=== PATIENT | male | born 1960 | race Caucasian/White ===

== ENCOUNTER 2016-10-16 03:59 | Emergency (ER) | payer MEDICARE, MEDICAID ==
[~2016-10-16] VITALS: Ht 182.9 cm; Wt 88.9 kg
[2016-10-16] MEDS ORDERED: HYDR-879 PO (04:33)
[2016-10-16 05:33] VITALS: BP 139/82
== END 2016-10-16 05:37 | disposition home or self-care (01) ==
LOC: ED 05:34
DX: K40.91 Unilateral inguinal hernia, without obstruction or gangrene, recurrent (principal); I87.2 Venous insufficiency (chronic) (peripheral); I10 Essential (primary) hypertension; E11.9 Type 2 diabetes mellitus without complications; F17.210 Nicotine dependence, cigarettes, uncomplicated
CPT/HCPCS: 99283

== ENCOUNTER 2016-10-19 05:07 | Emergency (ER) | payer MEDICARE, MEDICAID ==
[2016-10-19 05:11] VITALS: BP 167/90
== END 2016-10-19 05:35 | disposition home or self-care (01) ==
LOC: ED 05:30
DX: K40.90 Unilateral inguinal hernia, without obstruction or gangrene, not specified as recurrent (principal)
CPT/HCPCS: 99281

== ENCOUNTER → 2016-10-19 | Emergency (ER) | payer MEDICARE, MEDICAID ==
[~2016-10-19] VITALS: Ht 188 cm; Wt 88.0 kg
[~2016-10-19] MED LIST: HYDR-879 PO
[2016-10-19 01:58] LABS: BLOOD UREA NITROGEN 18 mg/dL (7-18)
[2016-10-19 02:57] VITALS: BP 159/97
== END ==
LOC: ED 02:30
DX: R60.0 Localized edema (principal); L03.116 Cellulitis of left lower limb; L03.115 Cellulitis of right lower limb; I10 Essential (primary) hypertension; E11.9 Type 2 diabetes mellitus without complications; Z88.5 Allergy status to narcotic agent
CPT/HCPCS: 36415; 71010; 80048; 82040; 85025; 93005; 93970; 99285

== ENCOUNTER 2016-11-01 00:05 | Emergency (ER) | payer MEDICARE, MEDICAID ==
[~2016-11-01] VITALS: Ht 185.4 cm; Wt 89.0 kg
[2016-11-01] MEDS ORDERED: MECLIZINE CHEWABLE 25 MG TAB PO ONE (00:30)
[2016-11-01] MEDS ORDERED: SODIUM CHLORIDE 0.9% 1,000ML IVBOLUS ONE (00:30)
[2016-11-01] MEDS ORDERED: ONDANSETRON 2MG/ML, 2ML IVPush ONE (00:30)
[2016-11-01] MEDS ORDERED: SODIUM CHLORIDE FLUSH 10ML SYR IVF ONE (00:30)
[2016-11-01] MEDS ORDERED: ONDANSETRON 2MG/ML, 2ML ONE (00:41)
[2016-11-01] MEDS ORDERED: MECLIZINE CHEWABLE 25 MG TAB ONE (00:41)
[2016-11-01] MEDS ORDERED: ONDANSETRON ODT 4 MG ONE (00:54)
[2016-11-01 00:59] LABS: BLOOD UREA NITROGEN 14 mg/dL (7-18)
[2016-11-01] MEDS ORDERED: ONDANSETRON ODT 4 MG PO ONE (01:00)
[2016-11-01 01:04] LABS: IS PT STATUS REG ER OR PRE ER? YES
[2016-11-01 01:46] VITALS: BP 149/93
== END 2016-11-01 02:18 | disposition home or self-care (01) ==
LOC: ED 02:12
DX: R60.0 Localized edema (principal); R42 Dizziness and giddiness; R11.2 Nausea with vomiting, unspecified; F10.20 Alcohol dependence, uncomplicated; E11.9 Type 2 diabetes mellitus without complications; I10 Essential (primary) hypertension; Z87.891 Personal history of nicotine dependence
CPT/HCPCS: 36415; 70450; 80048; 80307; 83880; 84484; 85025; 93005; 99285; Q0162